=== PATIENT | female | born 2005 | race Hispanic/Latino ===

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

== ENCOUNTER 2023-12-13 17:27 | Emergency (ER) | payer SELFPAY ==
[~2023-12-13] VITALS: Ht 157.5 cm; Wt 43.1 kg
[~2023-12-13 17:27] MED LIST changes: -FENTANYL CITRATE/PF 100MCG/2 ML INJ ONE; -MIDAZOLAM HCL 2 MG/2 ML VIAL ONE; -PROPOFOL IV EMULSION 10 MG/ML 20 ML VIAL ONE
[2023-12-13 17:35] VITALS: RESP 14; TEMP 98.7
[2023-12-13 17:58] LABS: CLARITY,URINE CLOUDY (CLEAR); COLOR,URINE RED (YELLOW)
[2023-12-13 18:01] LABS: PREGNANCY TEST, URINE NEGATIVE (NEGATIVE)
[2023-12-13 18:13] LABS: BILIRUBIN,URINE NEGATIVE (NEGATIVE); GLUCOSE, URINE NEGATIVE (NEGATIVE); KETONES,URINE NEGATIVE (NEGATIVE); LEUKOCYTE ESTERASE ,URINE TRACE (NEGATIVE); NITRITE,URINE NEGATIVE (NEGATIVE); PH,URINE 7.5 (5 - 7); PROTEIN,URINE DIPSTICK >=300 (NEGATIVE); URINE UROBILINOGEN 0.2 mg/dL (0.2 - 1)
[2023-12-13 18:14] LABS: BACTERIA,URINE FEW /HPF; RBC,URINE >50 /HPF (0-5); WBC,URINE (MAN) 0-5 /HPF (0-5)
[2023-12-13] MEDS ORDERED: PYRIDIUM100 MG PO (21:36)
[2023-12-13] MEDS ORDERED: CIPRO500 MG PO (21:36)
[2023-12-13 21:38] VITALS: PULSE 98
[2023-12-13 21:57] VITALS: BP 102/78; O2SAT 100
== END 2023-12-13 21:47 | disposition home or self-care (01) ==
LOC: ER 17:35
DX: R30.0 Dysuria (principal); N30.91 Cystitis, unspecified with hematuria
CPT/HCPCS: 74176; 81001; 81025; 99283